=== PATIENT | male | born 1990 | race Hispanic/Latino ===

== ENCOUNTER 2020-10-23 20:06 | Emergency (ER) | payer OTHER ==
[2020-10-23] MEDS ORDERED: Cyclobenzaprine 10 MG TAB ONE (20:32)
[2020-10-23] MEDS ORDERED: Ketorolac Tromethamine 15 MG/ML VIAL ONE (20:37)
== END 2020-10-23 20:57 | disposition home or self-care (01) ==
LOC: CSHERS 20:06
DX: S40.012A Contusion of left shoulder, initial encounter (principal); V43.52XA Car driver injured in collision with other type car in traffic accident, initial encounter
CPT/HCPCS: 96372; J1885